=== PATIENT | female | born 1970 | race Caucasian/White ===

== ENCOUNTER 2017-12-02 11:22 | Outpatient (CLI) | payer BC ==
--- NOTE | 2017-12-03 11:40 | MMO ---
SCREENING MAMMOGRAPHY: Date: 12-02-17 Comparison: 10-18-16, 07-27-15 History: Screening. FINDINGS: This study is interpreted with the assistance of computer aided detection. The breast parenchyma is heterogeneously dense, limiting mammographic sensitivity. No dominant mass or architectural distortion. No concerning microcalcifications. IMPRESSION: BIRADS 2 - benign findings. Recommend annual screening mammography. POS: [facility]
== END 2017-12-02 11:23 | disposition home or self-care (01) ==
LOC: SCSMAMMO 11:22
PROVIDERS: ATTEND Family Medicine
DX: Z12.31 Encounter for screening mammogram for malignant neoplasm of breast (principal)
CPT/HCPCS: 77067

== ENCOUNTER 2018-04-16 12:39 | Outpatient (CLI) | payer BC, OTHER ==
[2018-04-16 13:35] LABS: BHCG - Serum Negative (NEGATIVE); Pregs Control Background? CLEAR/WHITE (CLR/WHITE); Pregs Control Bar Appear? YES (CONTROL BAR)
--- NOTE | 2018-04-16 14:28 | NM ---
RADIOIODINE THERAPY: Date: 04/16/18 HISTORY: 47-year-old female with hyperthyroid Graves' disease. FINDINGS/IMPRESSION: After discussing the risks, benefits, alternatives and radiation precaution issues with the patient, verbal and written consent was obtained for radioiodine therapy with I-131 for the treatment of Grave s' disease. The patient verbalized understanding. 11.54 mCi of Iodine-131 were orally administered without complications. The patient will follow up [facility] [place] Dr. Denise. POS: [facility]
== END 2018-04-16 12:40 | disposition home or self-care (01) ==
LOC: NM 12:39
PROVIDERS: ATTEND Family Medicine
DX: E05.90 Thyrotoxicosis, unspecified without thyrotoxic crisis or storm (principal)
CPT/HCPCS: 79005; 84703; A9517